=== PATIENT | female | born 1965 | race Two or more races ===

== ENCOUNTER 2021-02-21 08:52 | Day surgery (SDC) | payer MEDICAID ==
[2021-02-16 14:18] LABS: Basophils # (auto) 0 10 ^3/uL (0-0.2); Basophils % (auto) 0.5 % (0.0-2.0); Eosinophils # (auto) 0.1 10 ^3/uL (0-0.8); Eosinophils % (auto) 1.2 % (0.0-7.0); Hemoglobin 12.9 g/dL (12.2-16.2); Lymphocytes # (auto) 2.5 10 ^3/uL (0.4-5.4); Lymphocytes % (auto) 40.8 % (10.0-50.0); Mean Corpuscular Hemoglobin 30.2 pg (28.0-32.0); Mean Corpuscular Hgb Conc. 32.4 g/dL (32.0-36.0); Mean Corpuscular Volume 93.2 fL (80.0-100.0); Monocytes # (auto) 0.5 10 ^3/uL (0-1.3); Monocytes % (auto) 7.6 % (0.0-12.0); Neutrophils # (auto) 3.1 10 ^3/uL (1.6-8.6); Neutrophils % (auto) 49.9 % (37.0-80.0); Red Blood Cells 4.29 10^6/uL (4.0-5.20); Red Cell Distribution Width 13.4 % (11.8-14.3); White Blood Cell 6.1 10^3/uL (4.4-10.8)
[2021-02-16 14:44] LABS: Urine Bacteria NONE SEEN /hpf (None Seen); Urine Blood Negative /uL (Negative); Urine Mucus FEW (None Seen); Urine Specific Gravity 1.026 (1.001-1.035); Urine WBC 1 /hpf (0 - 5)
[2021-02-16 14:58] LABS: Albumin 3.1 g/dL (3.4-5.0); BUN/Creatinine Ratio 15.5; Calcium 8.6 mg/dL (8.5-10.1); Potassium 3.8 mmol/L (3.5-5.1)
[2021-02-16 15:01] LABS: Bilirubin, Total 0.6 mg/dL (0.2-1.0); Total Protein 6.7 g/dL (6.4-8.2)
[~2021-02-21] VITALS: Ht 165.1 cm; Wt 81.6 kg
[~2021-02-21 08:52] MED LIST: ATOR10TA PO; ESTR2TAB2 PO; IBUP800T27 PO; METH100I IJ; PANT40TA2 PO
[2021-02-21] MEDS ORDERED: ceFAZolin 1GM/50ML 100 ML IV ONE (09:38)
[2021-02-21] MEDS ORDERED: LIDOCAINE 1% HCL (LOCAL ANESTH.) INJ 20ML MDV ONE (10:33)
[2021-02-21] MEDS ORDERED: BUPIVACAINE HCL 50 ML ONE (10:33)
[2021-02-21] MEDS ORDERED: fentaNYL CITRATE 100 MCG/2 ML VL ONE (10:40)
[2021-02-21] MEDS ORDERED: ONDANSETRON HCL 4 MG/2 ML VIAL ONE (10:40)
[2021-02-21] MEDS ORDERED: PROPOFOL 10 MG/ML 20 ML IV ONE (10:40)
[2021-02-21] MEDS ORDERED: MIDAZOLAM HCL 2MG/2ML 2ml VIAL (1mg/ml) ONE (10:40)
[2021-02-21] MEDS ORDERED: LIDOCAINE 2% (LOCAL ANESTH.) PF 5ml SDV ONE (10:40)
[2021-02-21] MEDS ORDERED: ONDANSETRON HCL 4 MG/2 ML VIAL IV PRN (11:45)
[2021-02-21] MEDS ORDERED: HYDROmorphone HCL 2 MG/ML VL IV PRN (11:45)
[2021-02-21 12:30] VITALS: BP 112/64
== END 2021-02-21 12:30 | disposition home or self-care (01) ==
LOC: SUR 08:52
PROVIDERS: ATTEND Podiatrist
DX: M72.2 Plantar fascial fibromatosis (principal); M79.89 Other specified soft tissue disorders; M89.372 Hypertrophy of bone, left ankle and foot; M20.42 Other hammer toe(s) (acquired), left foot; G43.909 Migraine, unspecified, not intractable, without status migrainosus; E78.5 Hyperlipidemia, unspecified; Z98.51 Tubal ligation status; Z90.710 Acquired absence of both cervix and uterus; Z98.890 Other specified postprocedural states; Z79.899 Other long term (current) drug therapy; Z20.822 Contact with and (suspected) exposure to COVID-19
CPT/HCPCS: 28062; 36415; 80053; 81001; 85025; 88305; J0690; J2001; J2250; J2405; J2704; J3010; J3490; U0003

== ENCOUNTER → 2021-11-21 | Outpatient (CLI) | payer MEDICAID, OTHER ==
[2021-11-21 14:15] LABS: Bilirubin, Total 0.6 mg/dL (0.2-1.0); Total Protein 7.1 g/dL (6.4-8.2)
[2021-11-21 14:27] LABS: Albumin 3.4 g/dL (3.4-5.0); Bilirubin, Direct 0.2 mg/dL (0-0.2)
== END | disposition home or self-care (01) ==
LOC: LAB 13:28
PROVIDERS: ATTEND Podiatrist
DX: M72.2 Plantar fascial fibromatosis (principal)
CPT/HCPCS: 36415; 80076

== ENCOUNTER 2024-06-15 12:49 | Inpatient (IN) | payer MEDICAID, OTHER ==
[~2024-06-15] VITALS: Ht 165.1 cm; Wt 93.1 kg
[~2024-06-15 12:49] MED LIST changes: -ESTR2TAB2 PO; +ESTR2TAB5 PO; +IBUP-1456 PO; -IBUP800T27 PO; +METH100035 IJ; -METH100I IJ
[2024-06-15] MEDS: SODIUM CHLORIDE 0.9% 1,000 ML IV ONE (14:40)
--- NOTE | 2024-06-15 14:40 | ED.PDOC ---
GI ASSESSMENT HPI Comments 58 y/o F presents to the ED with CC of nausea/vomiting. Patient states, that she has been experiencing nausea/vomiting with associated abdominal pain [id number]. Patient relays, that she followed up with her PCP and was relayed to the ED for a further work up. Patient endorses on, new symptoms of weakness and fatigue. Patient denies social history. Patient denies fever, chills, body-aches, or poor appetite. No other symptoms or modifying factors at this time. Chief Complaint: Nausea/Vomiting Time Seen by MD: 13:25 Primary Care Provider: AMINTA Reviewed Notes: Nurses Notes, Medications, Allergies Allergies: Coded Allergies: NO KNOWN ALLERGIES (Unverified , 02/16/21) Home Meds Reported Medications Ibuprofen (Ibuprofen) 800 Mg Tab, 800 MG PO Q8HP, TAB 02/16/21 Methocarbamol (Robaxin) 1,000 Mg/10 Ml Inj, 1000 MG IJ, INJ 02/16/21 Estradiol (Estradiol) 2 Mg Tab, 2 MG PO, TAB 02/16/21 Pantoprazole Sodium Sesquihydr (Protonix) 40 Mg Tab, 40 MG PO DAILY, #30 TAB 02/16/21 Atorvastatin Calcium (Lipitor) 10 Mg Tab, 10 MG PO, TAB 02/16/21 Information Source: Patient Mode of Arrival: EMS Timing: Days Duration: Since onset Prehospital treatment: None Quality: Cramping Vomitus: Watery Stool: Watery Severity: Moderate Recent: None Recent Hx of: None Pain Location: Diffuse Modifying Factors: Nothing Associated sign and symptoms: Nausea, Vomiting, Diarrhea Past Medical History PAST MEDICAL HISTORY: High Lipids Surgical History: Cholecystectomy, Hysterectomy Surgical History (Other): lumbar shx [employer] History: Unknown Family History Family History: Unknown Social History Smoker: Non-Smoker Alcohol: Denies ETOH Use Drugs: Denies Drug Use Lives In: Home Constitutional: reports: weakness; denies: chills, diaphoresis, fatigue, fever, malaise, sweats, others EENTM: denies: blurred vision, double vision, ear bleeding, ear discharge, ear drainage, ear pain, ear ringing, eye pain, eye redness, hearing loss, mouth pain, mouth swelling, nasal discharge, nose bleeding, nose congestion, nose pain, photophobia, tearing, throat pain, throat swelling, voice changes, others Respiratory: denies: cough, hemoptysis, orthopnea, SOB at rest, shortness of breath, SOB with excertion, stridor, wheezing, others Cardiovascular: denies: chest pain, dizzy spells, diaphoresis, Dyspnea on exertion, edema, irregular heart beat, left arm pain, lightheadedness, palpitations, PND, syncope, others Gastrointestinal: reports: abdominal pain, diarrhea, nausea, vomiting; denies: abdomen distended, blood streaked bowels, constipated, dysphagia, difficulty swallowing, hematemesis, melena, poor appetite, poor fluid intake, rectal bleeding, rectal pain, others Genitourinary: denies: abnormal vagina bleeding, burning, dyspareunia, dysuria, flank pain, frequency, hematuria, incontinence, pain, , vagina disch arge, urgency, others Neurological: denies: dizziness, fainting, headache, left sided numbness, left sided weakness, numbness, paresthesia, pre-existing deficit, right sided numbness, right sided weakness, seizure, speech problems, tingling, tremors, weakness, others Musculoskeletal: denies: back pain, gout, joint pain, joint swelling, muscle pain, muscle stiffness, neck pain, others Integumetry: denies: bruises, change in color, change in hair/nails, dryness, laceration, lesions, lumps, rash, wounds, others Allergic/Immunocompromised: denies: Difficulty Healing, Frequent Infections, Hives, Itching, others Hematologic/Lymphatic: denies: anemia, blood clots, easy bleeding, easy bruising, swollen glands, others Endocrine: denies: excessive hunger, excessive sweating, excessive thirst, excessive urination, flushing, intolerance to cold, intolerance to heat, unexplained weight gain, unexplained weight loss, others Psychiatric: denies: anxiety, bipolar disorder, depression, hopeless, panic disorder, schizophrenia, sleepless, suicidal, others All Other Systems: Reviewed and Negative Physical Exam General Appearance: Moderate Distress HEENT: Normal ENT Inspection, Pharynx Normal, TMs Normal Neck: Full Range of Motion, Non-Tender, Normal, Normal Inspection Respiratory: Chest Non-Tender, Lungs Clear, No Accessory Muscle Use, No Respiratory Distress, Normal Breath Sounds Cardiovascular: No Edema, No JVD, No Murmur, No Gallop, Normal Peripheral Pulses, Regular Rate/Rhythm Breast Exam: Deferred Gastrointestinal: No Organomegaly, Non Tender, No Pulsatile Mass, Normal Bowel Sounds, Soft Genitalia: Deferred Pelvic: Deferred Rectal: Deferred Extremities: No calf tenderness, Normal capillary refill, Normal inspection, Normal range of motion, Non-tender, No pedal edema Musculoskeletal : Apperance: Normal Neurologic: Alert, blow machine tender starch spraying II-XII nml as Tested, No Motor Deficits, Normal Affect, Normal Mood, No Sensory Deficits Cerebellar Function: NOT DONE Reflexes: NOT DONE Skin: Dry, Normal Color, Warm Peripheral Pulses: 3+ Radial (R), 3+ Radial (L) Lymphatic: No Adenopathy Was a procedure done? Was a procedure done?: No GI differential Dx Differential Diagnosis: Constipation, Diverticular disease, Esophagitis, Gastritis/PUD, Gastroenteritis, Inflammatory BD, Pancreatitis, Urolithiasis, Electrolyte Imbalance, Food Poisoning, Bacterial, Viral X-Ray, Labs, Meds, VS Vital Signs Date Time Temp Pulse Resp B/P (MAP) Pulse Ox O2 Delivery O2 Flow Rate FiO2 06/15/24 14:47 74 18 99/57 (71) 92 06/15/24 14:43 74 18 92 Room Air* 0 21 06/15/24 12:57 98.4 70 20 136/77 (96) 94 Lab Test 06/15/24 14:45 Range/Units White Blood Count 10.1 4.4-10.8 10^3/uL Red Blood Count 5.15 4.0-5.20 10^6/uL Hemoglobin 15.5 12.2-16.2 g/dL Hematocrit 46.2 H 36.0-46.0 % Mean Corpuscular Volume 89.8 80.0-100.0 fL Mean Corpuscular Hemoglobin 30.1 28.0-32.0 pg Mean Corpuscular Hemoglobin Concent 33.6 32.0-36.0 g/dL Red Cell Distribution Width 13.4 11.8-14.3 % Platelet Count 272 140-450 10^3/uL Mean Platelet Volume 8.9 6.9-10.8 fL Neutrophils (%) (Auto) 71.2 37.0-80.0 % Lymphocytes (%) (Auto) 23.5 10.0-50.0 % Monocytes (%) (Auto) 4.9 0.0-12.0 % Eosinophils (%) (Auto) 0.2 0.0-7.0 % Basophils (%) (Auto) 0.2 0.0-2.0 % Neutrophils # (Auto) 7.2 1.6-8.6 10 ^3/uL Lymphocytes # (Auto) 2.4 0.4-5.4 10 ^3/uL Monocytes # (Auto) 0.5 0-1.3 10 ^3/uL Eosinophils # (Auto) 0 0-0.8 10 ^3/uL Basophils # (Auto) 0 0-0.2 10 ^3/uL Nucleated Red Blood Cells 0.0 % Sodium Level 142 136-145 mmol/L Potassium Level 3.7 3.5-5.1 mmol/L Chloride Level 106 98-107 mmol/L Carbon Dioxide Level 29 20-31 mmol/L Anion Gap 7 5-15 Blood Urea Nitrogen 19 9-23 mg/dL Creatinine 0.98 0.550-1.02 mg/dL Glomerular Filtration Rate Calc 66 >90 mL/min BUN/Creatinine Ratio 19.4 10.0-20.0 Serum Glucose 123 H 74-106 mg/dL Calcium Level 9.6 8.7-10.4 mg/dL Troponin I High Sensitivity 4 </=34 ng/L Current Medications Medications (Trade) Dose Ordered Sig/Jose C Route Start Time Stop Time Status Last Admin Sodium Chloride 1,000 ml @ 1,000 mls/hr Q1H ONCE IV 06/15/24 14:15 06/15/24 15:14 DC 06/15/24 14:40 [place] [id number] Ph: [phone] DIAGNOSTIC IMAGING Diagnostic Imaging Report : [id number] Signed PATIENT: MADI RUTHERFORD ACCT: [id number] UNIT: [id number] : 1965 LOC: ER ROOM / BED: / AGE / SEX: 58 / F ADM STATUS: REG ER SERVICE [id number] ORDERING PHYSICIAN: PACHECO CHINO MD PROCEDURE(s): ABPL - CT AB PEL WO CON-NO ORAL OR IV REASON: enteritis ORDER NUMBER(s): [id number], ACCESSION NUMBER(s): [id number] CT ABDOMEN AND PELVIS WITHOUT CONTRAST CLINICAL HISTORY: enteritis TECHNIQUE: Multiple contiguous axial images of the abdomen and pelvis without intravenous contrast. The images were reformatted degenerate coronal and sagittal reconstructions. All CT scans at this medical facility are performed using dose modulation techniques as appropriate to a performed exam including the following:Automated exposure control was utilized; adjustment of the MA and/or KV according to patient size; and use of iterative reconstruction technique. Radiation Dose Information: CT Dose: CTDI volume is 18 mGy. Dose-length product is 925 mGy*cm Comparison: None FINDINGS: Evaluation of the abdomen and pelvis is limited without intravenous contrast. The gallbladder is surgically absent. There is a dilated common bile duct which is likely postsurgical. There are left renal cysts measuring up to 3.2 cm. There is no evidence of nephrolithiasis or hydronephrosis. The liver, pancreas, adrenal glands, and spleen appear within normal limits. There is no gross evidence of abdominal lymphadenopathy. There is no free fluid or free air. The stomach grossly appears unremarkable. The small and large bowel loops demonstrate normal caliber. There are diverticula in the sigmoid colon without evidence of acute diverticulitis. There is a normal-appearing appendix seen in the right lower quadrant abdomen. The abdominal aorta and IVC appear within normal limits. The bladder appears unremarkable for the degree of distention. The uterus is surgically absent.. There is no gross evidence of a pelvic mass. There is no free fluid collection. There is a band of scarring versus atelectasis in the right lung base. There is levoconvex curvature of the lumbar spine. There is partial visualization of the left-sided posterior fusion vinny in the visualized thoracic and upper lumbar spine. IMPRESSION: 1. There is no acute process in the abdomen and pelvis. 2. Sigmoid diverticulosis without evidence of acute diverticulitis. 3. Postsurgical changes related to cholecystectomy with dilated common bile duct. 4. Left renal cysts. HS:Y ATED BY: TRENTON MELENDEZ MD DICTATED DATE/TIME: 06/15/241434 SIGNED BY: TRENTON MELENDEZ MD SIGNED DATE/TIME: 06/15/241434 CC: Patient alert. Complaining of abdominal pain nausea vomiting generalized weakness. Unable to ambulate. Vitals stable. Answering all questions. CT scan of the abdomen does not show any acute process. She is unable to ambulate. Possibly will need GI consultation. Establish intravenous access. Was given fluids. Reviewed her previous visit. Explained to the patient. Continue cardiac monitoring. Time of 1ST Reevaluation: 13:55 Reevaluation 1ST: Unchanged Patient Education/Counseling: Diagnosis, Treatment Family Education/Counseling: Diagnosis, Treatment Departure 1 Departure Time of Disposition: 16:17 Impression: Primary Impression: Acute abdominal pain Additional Impressions: Diverticulosis Generalized weakness Disposition: ADMITTED INPATIENT Admit to: Med Surg Condition: Guarded Discharged With: Legal Guardian Critical Care Note Critical Care Time?: No Stability Stability form required: No Heart Score Heart Score: Heart Score Response (Comments) Value History N/A 0 EKG N/A 0 Age N/A 0 Risk Factors N/A 0 Troponin N/A 0 Total 0 I personally scribed for PACHECO CHINO MD ([email or web address]) on 06/15/24 at 14:40. Electronically submitted by Fela Mccoy ([email or web address]). I personally scribed for PACHECO CHINO MD ([email or web address]) on 06/15/24 at 15:14. Electronically submitted by Fela Mccoy ([email or web address]). PACHECO CHINO MD Jun 15, 2024 14:40
[2024-06-15 14:43] VITALS: PULSE 74; RESP 18; O2SAT 92
[2024-06-15 15:12] LABS: Chloride 106 mmol/L (98-107); Potassium 3.7 mmol/L (3.5-5.1); Sodium 142 mmol/L (136-145)
[2024-06-15 15:13] LABS: Anion Gap 7 (5-15); Basophils # (auto) 0 10 ^3/uL (0-0.2); Basophils % (auto) 0.2 % (0.0-2.0); Carbon Dioxide 29 mmol/L (20-31); Eosinophils # (auto) 0 10 ^3/uL (0-0.8); Eosinophils % (auto) 0.2 % (0.0-7.0); Hematocrit 46.2 % (36.0-46.0); Hemoglobin 15.5 g/dL (12.2-16.2); Lymphocytes # (auto) 2.4 10 ^3/uL (0.4-5.4); Lymphocytes % (auto) 23.5 % (10.0-50.0); Mean Corpuscular Hemoglobin 30.1 pg (28.0-32.0); Mean Corpuscular Hgb Conc. 33.6 g/dL (32.0-36.0); Mean Corpuscular Volume 89.8 fL (80.0-100.0); Monocytes # (auto) 0.5 10 ^3/uL (0-1.3); Monocytes % (auto) 4.9 % (0.0-12.0); Neutrophils # (auto) 7.2 10 ^3/uL (1.6-8.6); Neutrophils % (auto) 71.2 % (37.0-80.0); Platelet Count (auto) 272 10^3/uL (140-450); Red Blood Cells 5.15 10^6/uL (4.0-5.20); Red Cell Distribution Width 13.4 % (11.8-14.3); White Blood Cell 10.1 10^3/uL (4.4-10.8)
[2024-06-15 15:14] LABS: Calcium 9.6 mg/dL (8.7-10.4)
[2024-06-15 15:18] LABS: BUN/Creatinine Ratio 19.4 (10.0-20.0); Blood Urea Nitrogen 19 mg/dL (9-23)
[2024-06-15 15:27] LABS: Glucose 123 mg/dL (74-106)
[2024-06-15 16:30] LABS: Urine Bacteria FEW /hpf (None Seen); Urine Blood Negative /uL (Negative); Urine Clarity Turbid (Clear); Urine Color Yellow (Yellow); Urine Mucus FEW (None Seen); Urine Protein, UAD 1+ (Negative); Urine Specific Gravity 1.026 (1.001-1.035); Urine Squamous Epithelial Cell FEW /hpf (<5); Urine Urobilinogen Normal (Negative); Urine WBC 11 /HPF (0-5); Urine pH 5.5 (5.0-9.0)
--- NOTE | 2024-06-15 22:20 | DVHHPRES ---
History of Present Illness Resident Creating Document: CAR HDEZ RESDIENT History of Present Illness This is a 58-year-old female with past medical history of dyslipidemia, GERD came to the hospital due to dizziness since 10 days. Per patient, the patient is feeling like the room is spinning around her, which worsen the head. Patient also reports fever, cough, mild shortness of breaths, nausea, vomiting, diarrhea, and abdominal pain. Patient denies chest pain, dysuria, any recent sick contact or travel history. The patient has history of scoliosis (status po st surgery) and lumbar disc herniation which has the planned surgery 2 months later. PMHx: Scoliosis (status post surgery and bar placement during childhood) dyslipidemia and GERD PSHx: Cholecystectomy, hysterectomy, cystectomy of the kidney, surgery for plantar fasciitis Social history: Patient uses walker, lives alone, denies smoking drink or any other drug use Home medication: Atorvastatin, Pepcid and Protonix Allergic history: No known allergies Review of Systems Review of Systems General: Reports mild headache HEENT: Patient reports dizziness and headaches Cardiovascular: Denies chest pain, palpitations, dyspnea on exertion, orthopnea, or claudication. Respiratory: Reports cough, and shortness of breaths Gastrointestinal: Reports nausea, vomiting, diarrhea Genitourinary: No dysuria, hematuria, discharge, frequency, urgency, nocturia, incontinence, and urinary retention. Endocrine: No heat or cold intolerance, polydipsia, polyuria, and polyphagia. Neurological: No dizziness, extremity weakness and numbness, tremors, gait disturbance, seizures, and memory impairment. Psychiatric: Denies depression, anxiety,or insomnia. Musculoskeletal: Denies neck pain, stiffness and swelling, back pain, muscle weakness, joint pain, stiffness, swelling, or limited range of motion. Skin: No rashes, itching, skin lesion, changes in hair, nail, skin texture and breast. Hematologic/Lymphatic: Denies easy bruising, bleeding tendencies, or lymph node enlargement. Allergies: Coded Allergies: NO KNOWN ALLERGIES (Unverified , 02/16/21) Exam Vital Signs Vital Signs Date Time Temp Pulse Resp B/P (MAP) Pulse Ox O2 Delivery O2 Flow Rate FiO2 06/15/24 19:45 98.3 65 15 102/69 (80) 95 98.3 06/15/24 14:43 Room Air* 0 21 Exam General Appearance: Alert, Oriented X3, Cooperative, No acute distress HEENT: Atraumatic, PERRLA, EOMI, Mucous membrane moist/pink Respiratory: Bilateral crackles Cardiovascular: Regular rate, Normal S1, Normal S2, No murmurs, no chest wall tenderness Abdominal: Normal bowel sounds, Soft, No tenderness, No hepatospenomegaly, No masses Extremities: No clubbing, No cyanosis, No edema, Normal pulses, No tenderness/swelling Skin: No rashes, No breakdown, No significant lesion Neuro: Normal gait, Normal speech, Strength at 5/5 X4 ext, Normal tone, Sensation intact, Cranial nerves 3-12 NL, Reflexes 2+ Psych/Mental Status: Mental status NL, Mood NL Labs/Xrays Labs Test 06/15/24 14:45 06/15/24 14:37 Range/Units White Blood Count 10.1 4.4-10.8 10^3/uL Red Blood Count 5.15 4.0-5.20 10^6/uL Hemoglobin 15.5 12.2-16.2 g/dL Hematocrit 46.2 H 36.0-46.0 % Mean Corpuscular Volume 89.8 80.0-100.0 fL Mean Corpuscular Hemoglobin 30.1 28.0-32.0 pg Mean Corpuscular Hemoglobin Concent 33.6 32.0-36.0 g/dL Red Cell Distribution Width 13.4 11.8-14.3 % Platelet Count 272 140-450 10^3/uL Mean Platelet Volume 8.9 6.9-10.8 fL Neutrophils (%) (Auto) 71.2 37.0-80.0 % Lymphocytes (%) (Auto) 23.5 10.0-50.0 % Monocytes (%) (Auto) 4.9 0.0-12.0 % Eosinophils (%) (Auto) 0.2 0.0-7.0 % Basophils (%) (Auto) 0.2 0.0-2.0 % Neutrophils # (Auto) 7.2 1.6-8.6 10 ^3/uL Lymphocytes # (Auto) 2.4 0.4-5.4 10 ^3/uL Monocytes # (Auto) 0.5 0-1.3 10 ^3/uL Eosinophils # (Auto) 0 0-0.8 10 ^3/uL Basophils # (Auto) 0 0-0.2 10 ^3/uL Nucleated Red Blood Cells 0.0 % Sodium Level 142 136-145 mmol/L Potassium Level 3.7 3.5-5.1 mmol/L Chloride Level 106 98-107 mmol/L Carbon Dioxide Level 29 20-31 mmol/L Anion Gap 7 5-15 Blood Urea Nitrogen 19 9-23 mg/dL Creatinine 0.98 0.550-1.02 mg/dL Glomerular Filtration Rate Calc 66 >90 mL/min BUN/Creatinine Ratio 19.4 10.0-20.0 Serum Glucose 123 H 74-106 mg/dL Calcium Level 9.6 8.7-10.4 mg/dL Troponin I High Sensitivity 4 </=34 ng/L Urine Color Yellow Yellow Urine Clarity Turbid H Clear Urine pH 5.5 5.0-9.0 Urine Specific [place] 1.026 1.001-1.035 Urine Protein 1+ H Negative Urine Ketones 1+ H Negative Urine Blood Negative Negative /uL Urine Nitrite Negative Negative Urine Bilirubin Negative Negative Urine Urobilinogen Normal Negative mg/dL Urine Leukocyte Esterase 1+ Negative /uL Urine RBC 3 0 - 4 /hpf Urine Microscopic WBC 11 H 0-5 /HPF Urine Squamous Epithelial Cells Few <5 /hpf Urine Bacteria Few H None Seen /hpf Urine Mucus Few None Seen Urine Glucose Trace Normal mg/dL Assessment/Plan Assessment/Plan Dizziness possibly due to BPPV Head CT scan is normal Zora maneuver could not perform due to patient's back pain and scoliosis/dyskinesia Tablet meclizine Pneumonia, likely due to Gram-positive Gram-negative bacteria/viral Check MRSA nares, influenza, COVID 19 and sputum culture Empiric antibiotics of ceftriaxone and azithromycin IV antibiotic Breathing treatment p.r.n. UTI, unspecified location slight Urine culture IV antibiotics History of scoliosis, status post surgery/placement of bar Degenerative disc disease/disc herniation, patient has appointment for a planned surgery Dyslipidemia Continue atorvastatin GERD Continue Protonix Sigmoid diverticulosis, without diverticulitis CT scan finding Left renal cysts Patient has history of renal surgery for the cystectomy of the kidney DIET: Cardiac diet DVT PROPHYLAXIS: Lovenox GI PROPHYLAXIS:: Protonix CODE STATUS: Goal of care discussed for more than 23 minutes, full code DISPOSITION: Med/surge Patient's status and paln discussed with the patient and the patient's daughter at the bedside. Case discussed with Dr. Moulton. Plan discussed with: Patient, Other (RN) My Orders Orders - CAR HDEZ RESDIENT Procedure Category Date Status Time Admit ADMIT 06/15/24 Transmitted 22:18 Stat Ekg For Chest BOB 06/15/24 Transmitted Pain 22:18 Notify Md Of Changes BOB 06/15/24 Transmitted From Base 22:18 Date of Service: Jun 15, 2024 Billing Provider: CLARISA ALMARAZ MD Common Visit Codes: [id number] INP/OBS CARE (HIGH) CAR HDEZ RESDIENT Jun 15, 2024 22:20 CLARISA ALMARAZ MD Jun 16, 2024 23:15
[2024-06-15] MEDS ORDERED: MORPHINE SULFATE INJ 2 MG/ml SYRG IV PRN (23:00)
[2024-06-15] MEDS: PANTOPRAZOLE 40 MG/10 ML VIAL INJ IV ONE (23:29)
[2024-06-15] MEDS: ATORVASTATIN 20 MG TAB PO ONE (23:30)
[2024-06-15] MEDS: cefTRIAXone 1GM/50ML D5W 50 ML IV ONE (23:32)
[2024-06-15 23:45] LABS: Amphetamine Screen, Urine Neg (NEGATIVE); Barbiturate Scree,Urine Neg (NEGATIVE); Benzodiazephine Screen, Urine Neg (NEGATIVE); Cannabinoid Screen, Urine Neg (NEGATIVE); Cocaine Screen, Urine Neg (NEGATIVE); Opiate Scree,Urine Neg (NEGATIVE); Phencyclidine Screen, Urine Neg (NEGATIVE)
[2024-06-15] MEDS ORDERED: ONDANSETRON HCL 4 MG/2 ML VIAL IV PRN (23:45)
[2024-06-15 23:53] VITALS: BP 107/53; PULSE 64; RESP 18; TEMP 98.6; O2SAT 94
[2024-06-16] VITALS (15 sets, daily range): BP systolic 92–120; BP diastolic 53–70; PULSE 64–101; RESP 15–19; TEMP 97.7–98.6; O2SAT 90–99
[2024-06-16 00:04] LABS: Albumin 4.3 g/dL (3.2-4.8); Bilirubin, Total 0.9 mg/dL (0.2-1.0); Magnesium 1.9 mg/dL (1.6-2.6); Total Protein 6.7 g/dL (5.7-8.2)
[2024-06-16] MEDS: IPRATROPIUM BROM 0.5 MG/2.5ML INH SOL NEB SCH (00:04)
[2024-06-16 00:05] LABS: Bilirubin, Direct 0.4 mg/dL (<0.3)
[2024-06-16] MEDS: MECLIZINE HCL 25 MG TAB PO ONE (00:05)
[2024-06-16] MEDS: ENOXAPARIN SOD 40 MG/0.4 ML SYRINGE SC ONE (00:08)
[2024-06-16] MEDS: AZITHROMYCIN 500MG/ 250ML 250 ML IV ONE (00:17)
[2024-06-16 00:28] LABS: Folate (Folic Acid) 17.28 ng/mL (>5.38)
--- NOTE | 2024-06-16 01:02 | DVH ---
EXAM: XY CHEST XRAY 1 VIEW CLINICAL HISTORY: Pneumonia TECHNIQUE: Single AP view of the chest WID: COMPARISON: None FINDINGS: Lines and tubes: Single vinny projects over the thoracic spine. Chest: The heart size and pulmonary vasculature is within normal limits. No pleural effusion, pneumothorax, or consolidation. Linear scarring in the right lung base. The osseous structures are grossly intact. Mild right convexity scoliosis of the thoracic spine. IMPRESSION: No acute cardiopulmonary abnormality.
--- NOTE | 2024-06-16 01:29 | DVH ---
CT BRAIN WITHOUT CONTRAST HISTORY: Dizziness TECHNIQUE: Axial scans were obtained from the skull base through the vertex without contrast. [place] l and coronal reformats were generated. One or more of the following radiation dose reduction techniq ues were used for this examination: automated exposure control, adjustment of the mA and/or kV accord ing to patient size, use of iterative reconstruction technique. COMPARISON: None FINDINGS: Streak artifact limits evaluation, predominantly of the skull base and right posterior fossa. As visualized, no definite acute intracranial hemorrhage or evidence of large vessel territorial infa rction is identified at this time. No midline shift. The basilar cisterns are patent. The visualized paranasal sinuses and mastoid air cells are clear. No grossly displaced calvarial abn ormalities identified. IMPRESSION: No definite acute intracranial findings as visualized. If symptoms persist, MRI may be obtained to fu rther evaluate. HS:Y
[2024-06-16 05:06] LABS: COVID19 ANTIGEN SOFIA FIA NEGATIVE (NEGATIVE); Rapid Influenza A Negative (Negative); Rapid Influenza B Negative (Negative)
[2024-06-16] MEDS: ALBUTEROL SULF 2.5 MG/0.5ML(0.5%) NEB SOLN NEB PRN (07:32)
[2024-06-16] MEDS: MECLIZINE HCL 25 MG TAB PO SCH ×2 (09:19→14:00)
[2024-06-16] MEDS: PANTOPRAZOLE 40 MG/10 ML VIAL INJ IV SCH (09:19)
[2024-06-16] MEDS ORDERED: MECLIZINE HCL 25 MG TAB PO PRN (11:45)
[2024-06-16 12:05] LABS: Basophils # (auto) 0 10 ^3/uL (0-0.2); Basophils % (auto) 0.3 % (0.0-2.0); Eosinophils # (auto) 0.1 10 ^3/uL (0-0.8); Eosinophils % (auto) 0.5 % (0.0-7.0); Hematocrit 40.4 % (36.0-46.0); Hemoglobin 13.6 g/dL (12.2-16.2); Lymphocytes # (auto) 2.4 10 ^3/uL (0.4-5.4); Lymphocytes % (auto) 24.4 % (10.0-50.0); Mean Corpuscular Hemoglobin 30.3 pg (28.0-32.0); Mean Corpuscular Hgb Conc. 33.7 g/dL (32.0-36.0); Monocytes # (auto) 0.8 10 ^3/uL (0-1.3); Monocytes % (auto) 8.6 % (0.0-12.0); Neutrophils # (auto) 6.5 10 ^3/uL (1.6-8.6); Neutrophils % (auto) 66.2 % (37.0-80.0); Platelet Count (auto) 229 10^3/uL (140-450); Red Blood Cells 4.49 10^6/uL (4.0-5.20); Red Cell Distribution Width 13.4 % (11.8-14.3); White Blood Cell 9.8 10^3/uL (4.4-10.8)
[2024-06-16 12:18] LABS: Albumin 3.8 g/dL (3.2-4.8); Anion Gap 8 (5-15); BUN/Creatinine Ratio 17.7 (10.0-20.0); Blood Urea Nitrogen 14 mg/dL (9-23); Carbon Dioxide 27 mmol/L (20-31); Chloride 106 mmol/L (98-107); Glucose 101 mg/dL (74-106); Sodium 141 mmol/L (136-145)
[2024-06-16 12:19] LABS: Total Protein 5.8 g/dL (5.7-8.2)
[2024-06-16 12:21] LABS: Alanine Aminotransferase 81 U/L (7-40); Alkaline Phosphatase 179 U/L (46-116); Aspartate Aminotransferase 108 U/L (13-40); Calcium 8.6 mg/dL (8.7-10.4); Potassium 3.3 mmol/L (3.5-5.1)
[2024-06-16] MEDS: SODIUM CHLORIDE 0.9% 1,000 ML IV ONE (14:56)
[2024-06-16] MEDS: ACETAMINOPHEN 325 MG TAB PO PRN (15:31)
[2024-06-16] MEDS: POTASSIUM CHL 20 Meq TABLET PO ONE (15:31)
--- NOTE | 2024-06-16 18:28 | DVHPNRES ---
Progress Note Date Seen: Jun 16, 2024 Resident Creating Document: ANGELIC BOND RESIDENT Medical Necessity Reason Pt with a Central, PICC or Fol: No Subjective Review of Systems This is a 58-year-old female with past medical history of dyslipidemia, GERD came to the hospital due to dizziness since 10 days. Per patient, the patient is feeling like the room is spinning around her, which worsen the head. Patient also reports fever, cough, mild shortness of breaths, nausea, vomiting, diarrhea, and abdominal pain. Patient denies chest pain, dysuria, any recent sick contact or travel history. The patient has history of scoliosis (status post surgery) and lumbar disc herniation which has the planned surgery 2 months later. Patient was seen and examined on the bedside. She is alert oriented X3 and on 2 L oxygen. complain of dizziness, shortness of breath and cough. No other active complaints Constitutional: No: Fever, Chills, Sweats, Weakness, Malaise, Other Eyes: No: Pain, Vision change, Conjunctivae inflammation, Eyelid inflammation, Other, Redness ENT: No: Ear pain, Ear discharge, Nose pain, Nose discharge, Nose congestion, Mouth pain, Mouth swelling, Throat pain, Throat swelling, Other Respiratory: Shortness of breath, improving Cough, No Dry Wheezing, Hemoptysis, Pleuritic Pain, Sputum, Wheezing, Other Cardiovascular: No: Chest Pain, Palpitations, Orthopnea, Paroxysmal Noc. Dyspnea, Edema, Lt Headedness, Other Gastrointestinal: No: Nausea, Vomiting, Abdominal Pain, Diarrhea, Constipation, Melena, Hematochezia, Other Musculoskeletal: No: other, neck pain, shoulder pain, arm pain, back pain, hand pain, leg pain, foot pain Neurological:; Dizziness No: Weakness, Numbness, Incoordination, Change in speech, Confusion, Seizures Objective vital signs Vital Sign Date Time Temp Pulse Resp B/P (MAP) Pulse Ox O2 Delivery O2 Flow Rate FiO2 06/16/24 16:30 98.2 90 17 98/62 (74) 95 98.2 06/16/24 13:07 Nasal Cannula* 2 28 Total Intake and Output 06/15/24 06/15/24 06/16/24 15:00 23:00 07:00 Intake Total 1000 ml 450 ml Balance 1000 ml 450 ml medications Current Medications Medications Dose Ordered Sig/Jose C Route Start Time Stop Time Status Last Admin Dose Admin Ceftriaxone Sodium 50 ml @ 100 mls/hr DAILY@2100 IV 06/16/24 21:00 Pantoprazole Sodium 40 mg DAILY IV 06/16/24 10:00 06/16/24 09:19 40 MG Atorvastatin Calcium 40 mg HS PO 06/16/24 22:00 Ipratropium [place] 0.5 mg Q6HR NEB 06/16/24 00:00 06/16/24 13:07 0.5 MG Albuterol 2.5 mg Q6HPRN PRN NEB 06/15/24 23:00 06/16/24 13:07 2.5 MG Morphine Sulfate 1 mg Q6HP PRN IV 06/15/24 23:00 Azithromycin 250 ml @ 125 mls/hr DAILY IV 06/17/24 10:00 Acetaminophen 650 mg Q4HP PRN PO 06/15/24 23:45 06/16/24 15:31 650 MG Enoxaparin Sodium 40 mg DAILY SC 06/17/24 10:00 Ondansetron HCl 4 mg Q6HPRN PRN IV 06/15/24 23:45 Meclizine HCl 25 mg BID PO 06/16/24 14:00 Examination Physical examination: General Appearance: Alert, Oriented X3, Cooperative, No acute distress HEENT: Atraumatic, PERRLA, EOMI, Mucous membrane moist/pink Respiratory: Bilateral crackles. Cardiovascular: Regular rate, Normal S1, Normal S2, No murmurs, no chest wall tenderness Abdominal: Normal bowel sounds, Soft, No tenderness, No hepatospenomegaly, No masses Extremities: No clubbing, No cyanosis, No edema, Normal pulses, No tenderness/swelling Skin: No rashes, No breakdown, No significant lesion Neuro: Normal gait, Normal speech, Strength at 5/5 X4 ext, Normal tone, Sensation intact, grossly intact cranial nerves Psych/Mental Status: Mental status NL, Mood NL laboratory and microbiology Laboratory Tests 06/16/24 11:41 Test 06/16/24 11:41 Range/Units Serum Glucose 101 74-106 mg/dL Microbiology Date/Time Source Procedure Growth Status 06/16/24 03:05 Nose MRSA Screen - Final Complete Labs and/or images reviewed: Labs reviewed by me, Image(s) reviewed by me Problem List/Assessment/Plan Problem List/Assessment/Plan Assessment/Plan: # Dizziness possibly due to BPPV - Head CT scan is normal - Meclizine 25 mg PO b.i.d - Orthoststic vital sign - Jose Luis-hallpike maneuver # Community acquired pneumonia likely due to Gram-positive Gram-negative bacteria # Rule out CHF # Acute hypoxic respiratory failure secondary to above - Patient is on 2L oxygen with saturation 95% - CXR showed no acute cardiopulmonary abnormality - BNP is elevated - MRSA/Covid/Flu negative - Duoneb with Albuterol and ipratropium q.6 p.r.n. - IV ceftriaxone 1 g daily and IV azithromycin 500 mg daily - Ordered sputum C/S - Incentive spirometry - Ordered echo # Possible acute cystitis - U/A is consistent with UTI - Ordered urine bacterial culture - IV ceftriaxone1 gm daily # History of scoliosis, status post surgery/placement of bar #Degenerative disc disease/disc herniation, patient has appointment for a planned surgery # Dyslipidemia - Continue atorvastatin # GERD - Continue Protonix # Left renal cysts Patient has history of renal surgery for the cystectomy of the kidney DIET: Cardiac diet DVT PROPHYLAXIS: Lovenox GI PROPHYLAXIS:: Protonix CODE STATUS: Goal of care discussed for more than 23 minutes, full code DISPOSITION: Med/surge Case discussed with Dr. Moulton Plan discussed with: Patient, Other My Orders My Orders Orders - ANGELIC BOND RESIDENT Procedure Category Date Status Time Electrocardigram EKG 06/16/24 Logged 11:38 Meclizine Tablet PHA 06/16/24 In Process (Antivert Tablet) 14:00 Sodium Chloride 0.9% PHA 06/16/24 In Process 14:00 ANGELIC BOND RESIDENT Jun 16, 2024 18:28
[2024-06-16] MEDS: cefTRIAXone 1GM/50ML D5W 50 ML IV SCH (20:35)
[2024-06-16] MEDS: ATORVASTATIN 20 MG TAB PO SCH (21:35)
[2024-06-17] VITALS (14 sets, daily range): BP systolic 84–123; BP diastolic 51–68; PULSE 67–85; RESP 14–18; TEMP 97.6–98.6; O2SAT 92–100
[2024-06-17 06:04] LABS: Basophils # (auto) 0 10 ^3/uL (0-0.2); Basophils % (auto) 0.2 % (0.0-2.0); Eosinophils # (auto) 0 10 ^3/uL (0-0.8); Eosinophils % (auto) 0.5 % (0.0-7.0); Hematocrit 36.5 % (36.0-46.0); Hemoglobin 12.3 g/dL (12.2-16.2); Lymphocytes # (auto) 2.1 10 ^3/uL (0.4-5.4); Lymphocytes % (auto) 23.6 % (10.0-50.0); Mean Corpuscular Hemoglobin 30.4 pg (28.0-32.0); Mean Corpuscular Hgb Conc. 33.7 g/dL (32.0-36.0); Mean Corpuscular Volume 90.1 fL (80.0-100.0); Monocytes # (auto) 0.7 10 ^3/uL (0-1.3); Monocytes % (auto) 8.6 % (0.0-12.0); Neutrophils # (auto) 5.9 10 ^3/uL (1.6-8.6); Neutrophils % (auto) 67.1 % (37.0-80.0); Nucleated Red Blood Cells % 0.1 %; Platelet Count (auto) 234 10^3/uL (140-450); Red Blood Cells 4.05 10^6/uL (4.0-5.20); Red Cell Distribution Width 13.3 % (11.8-14.3); White Blood Cell 8.8 10^3/uL (4.4-10.8)
[2024-06-17 06:11] LABS: Potassium 3.7 mmol/L (3.5-5.1); Sodium 142 mmol/L (136-145)
[2024-06-17 06:12] LABS: Anion Gap 7 (5-15); Carbon Dioxide 26 mmol/L (20-31)
[2024-06-17 06:17] LABS: BUN/Creatinine Ratio 12.8 (10.0-20.0); Blood Urea Nitrogen 10 mg/dL (9-23); Calcium 8.6 mg/dL (8.7-10.4); Chloride 109 mmol/L (98-107); Glucose 90 mg/dL (74-106)
[2024-06-17 07:06] LABS: RPR Non Reactive (Non Reactive)
--- NOTE | 2024-06-17 08:02 | ECG ---
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
[2024-06-17] MEDS ORDERED: AZITHROMYCIN 500MG/ 250ML 250 ML IV SCH (10:00)
[2024-06-17] MEDS: ENOXAPARIN SOD 40 MG/0.4 ML SYRINGE SC SCH (10:23)
[2024-06-17] MEDS: SODIUM CHLORIDE 0.9% 500 ML IV ONE (10:27)
--- NOTE | 2024-06-17 10:49 | DVHSR ---
APPROVED REPORT EXAM: Two-dimensional and M-mode echocardiogram with Doppler and color Doppler. Blood Pressure: 84/52 mmHg INDICATION Rule out CHF RISK FACTORS Height: 65, Weight: 190 DIMENSIONS LVDd4.5 (3.8-5.7cm)LA (2D)3.7 (1.9-4.0cm)Aortic Root3.3 (2.0-3.7cm) LVDs2.7 (2.5-4.0cm)LA (MM) (1.9-4.0cm)Aortic Cusp Exc1.7 (1.5-2.0cm) EF (%) 70.0 (55-70%)Rt. Atrium4.2 (1.9-4.0cm)Asc. Aorta cm IVSd1.1 (0.7-1.1cm)RV (D) (1.8-2.4cm) PWd0.7 (0.7-1.1cm) Mitral Valve MitralMitral Stenosis E wave0.97m/sMV Mean GR.mmHg A wave0.44m/sMV Peak GR.mmHg E/A ratio2.22D MVAcm2 DECEL [id number] 1/2 [id number] IVRTmsDop MVA3.96cm2 Aortic Valve Aortic ValveAortic Stenosis V11.33m/Jonna Mean GR.4mmHg V21.41m/Jonna Peak GR.8mmHg LVOT Diameter1.9 (1.8-2.4cm)Doppler AVA2.67cm2 Pulmonic Valve V21.06m/s Tricuspid Valve TR Velocity2.77m/s [id number] LEFT VENTRICLE The left ventricle is of normal size. Wall thickness is normal. Ejection fraction is normal and is estimated at 65-70%. There is no gross wall motion abnormalities. Diastolic function appears to be preserved. E to E prime ratio is in the normal range. RIGHT VENTRICLE The right ventricle is mildly dilated in size. Systolic function is normal. ATRIA Both atria are of normal size. Intra-atrial septum is not well visualized. MITRAL VALVE Normal structure and function. No significant regurgitation. PULMONIC VALVE Likely normal. TRICUSPID VALVE Normal in structure and function. There is mild regurgitation. PA systolic pressure is estimated at 35-40 mm Hg. AORTIC VALVE Normal structure and function. GREAT VESSELS Aortic root is of normal size. Proximal ascending aorta isn't visualized. PERICARDIAL EFFUSION No significant pericardial effusion. IVC is not visualized. Conclusion Normal left ventricular size and systolic function. Ejection fraction is estimated at 65-70%. Mildly dilated right ventricle with a normal systolic function. No hemodynamically significant valvular disease. PA systolic pressure is estimated at 35-40 mm Hg. No significant pericardial effusion. No prior echo for comparison.
[2024-06-17] MEDS: MIDODRINE HCL 10 MG TAB PO SCH (13:16)
[2024-06-17] MEDS: DOXYCYCLINE 100MG/100ML 100 ML IV SCH (13:37)
[2024-06-17] MEDS: CEFEPIME 1GM/ 50ML 50 ML IV ONE (15:43)
[2024-06-17] MEDS: SODIUM CHLORIDE 0.9% 1,000 ML IV SCH (18:57)
--- NOTE | 2024-06-17 19:10 | DVHPNRES ---
Progress Note Date Seen: Jun 17, 2024 Resident Creating Document: ANGELIC BOND RESIDENT Medical Necessity Reason Pt with a Central, PICC or Fol: No Subjective Review of Systems This is a 58-year-old female with past medical history of dyslipidemia, GERD came to the hospital due to dizziness since 10 days. Per patient, the patient is feeling like the room is spinning around her, which worsen the head. Patient also reports fever, cough, mild shortness of breaths, nausea, vomiting, diarrhea, and abdominal pain. Patient denies chest pain, dysuria, any recent sick contact or travel history. The patient has history of scoliosis (status post surgery) and lumbar disc herniation which has the planned surgery 2 months later. Patient was seen and examined on the bedside. She is alert oriented X3 and on 1 L oxygen. Still complaining of dizziness, orthostatic vital negative, Zora's maneuver was also negative. patient refused MRI of the brain without contrast because she is claustrophobic. Patient is hypotensive but MAP is above 65 recommended IV normal saline at 100 mL/hours and midodrine 10 mg PO TID. Objective vital signs Vital Sign Date Time Temp Pulse Resp B/P (MAP) Pulse Ox O2 Delivery O2 Flow Rate FiO2 06/17/24 18:58 84 16 100 06/17/24 18:52 Nasal Cannula 2.0 06/17/24 18:52 24 06/17/24 17:01 98.3 104/51 (68) 98.3 Total Intake and Output 06/16/24 06/16/24 06/17/24 15:00 23:00 07:00 Intake Total 1200 ml 420 ml Output Total 0 ml 825 ml Balance 1200 ml -405 ml medications Current Medications Medications Dose Ordered Sig/Jose C Route Start Time Stop Time Status Last Admin Dose Admin Pantoprazole Sodium 40 mg DAILY IV 06/16/24 10:00 06/17/24 10:23 40 MG Atorvastatin Calcium 40 mg HS PO 06/16/24 22:00 06/16/24 21:35 40 MG Ipratropium [place] 0.5 mg Q6HR NEB 06/16/24 00:00 06/17/24 18:52 0.5 MG Albuterol 2.5 mg Q6HPRN PRN NEB 06/15/24 23:00 06/16/24 18:55 2.5 MG Morphine Sulfate 1 mg Q6HP PRN IV 06/15/24 23:00 Acetaminophen 650 mg Q4HP PRN PO 06/15/24 23:45 06/16/24 15:31 650 MG Enoxaparin Sodium 40 mg DAILY SC 06/17/24 10:00 06/17/24 10:23 40 MG Ondansetron HCl 4 mg Q6HPRN PRN IV 06/15/24 23:45 Meclizine HCl 25 mg BID PO 06/16/24 14:00 06/17/24 10:23 25 MG Cefepime HCl 50 ml @ 12.5 mls/hr Q12HR IV 06/17/24 22:00 Doxycycline Hyclate 100 ml @ 50 mls/hr Q12H IV 06/17/24 11:00 06/17/24 13:37 50 MLS/HR Sodium Chloride 1,000 ml @ 100 mls/hr Q10H IV 06/17/24 11:15 06/17/24 18:57 100 MLS/HR Midodrine 10 mg TID@0600,1200,1800 PO 06/17/24 12:00 06/17/24 18:56 10 MG Examination Physical examination: General Appearance: Alert, Oriented X3, Cooperative, No acute distress HEENT: Atraumatic, PERRLA, EOMI, Mucous membrane moist/pink Respiratory: Bilateral crackles. Cardiovascular: Regular rate, Normal S1, Normal S2, No murmurs, no chest wall tenderness Abdominal: Normal bowel sounds, Soft, No tenderness, No hepatospenomegaly, No masses Extremities: No clubbing, No cyanosis, No edema, Normal pulses, No tenderness/swelling Skin: No rashes, No breakdown, No significant lesion Neuro: Normal gait, Normal speech, Strength at 5/5 X4 ext, Normal tone, Sensation intact, grossly intact cranial nerves Psych/Mental Status: Mental status NL, Mood NL laboratory and microbiology Laboratory Tests 06/17/24 05:04 Test 06/17/24 05:04 Range/Units Serum Glucose 90 74-106 mg/dL Microbiology Date/Time Source Procedure Growth Status 06/17/24 03:35 Stool Stool Culture - Preliminary Resulted 06/17/24 03:35 Stool Shiga Toxin I & II - Final Resulted 06/16/24 03:05 Nose MRSA Screen - Final Complete 06/15/24 14:37 Voided Urine Urine Culture - Preliminary Resulted Labs and/or images reviewed: Labs reviewed by me, Image(s) reviewed by me Problem List/Assessment/Plan Problem List/Assessment/Plan Assessment/Plan: # Dizziness possibly due to BPPV/ Hypotension - Head CT scan is normal - Meclizine 25 mg PO b.i.d - Orthoststic vital sign negative - Jose Luis-hallpike maneuver/ Zora manuever- Negative - IV normal saline at 100 mL/hour - [id number] mg PO TID # Community acquired pneumonia likely due to Gram-positive Gram-negative bacteria # Rule out CHF # Acute hypoxic respiratory failure secondary to above - Patient is on 2L oxygen with saturation 95% - CXR showed no acute cardiopulmonary abnormality - BNP is elevated - MRSA/Covid/Flu negative - Duoneb with Albuterol and ipratropium q.6 p.r.n. - IV ceftriaxone 1 g daily and IV azithromycin 500 mg daily - Ordered sputum C/S - Incentive spirometry - Echo revealed EF 65 to 70%, RVSP 35 to 40 mm of hg. # Possible acute cystitis - U/A is consistent with UTI - Ordered urine bacterial culture - IV ceftriaxone1 gm daily # History of scoliosis, status post surgery/placement of bar #Degenerative disc disease/disc herniation, patient has appointment for a planned surgery # Dyslipidemia - Continue atorvastatin # GERD - Continue Protonix # Left renal cysts Patient has history of renal surgery for the cystectomy of the kidney DIET: Cardiac diet DVT PROPHYLAXIS: Lovenox GI PROPHYLAXIS:: Protonix CODE STATUS: Goal of care discussed for more than 23 minutes, full code DISPOSITION: Med/surge Case discussed with Dr. Moulton Plan discussed with: Patient, Other My Orders My Orders Orders - ANGELIC BOND RESIDENT Procedure Category Date Status Time Cefepime 1gm/ 50ml PHA 06/17/24 In Process (Maxipime 1gm/50ml) 22:00 Doxycycline PHA 06/17/24 In Process 100mg/100ml 11:00 Sodium Chloride 0.9% PHA 06/17/24 In Process 11:15 Midodrine Tablet PHA 06/17/24 In Process (Proamatine Tablet) 12:00 Transfer Orders XFER 06/17/24 Transmitted 11:06 ANGELIC BOND RESIDENT Jun 17, 2024 19:10
[2024-06-17] MEDS: CEFEPIME 1GM/ 50ML 50 ML IV SCH (21:06)
[2024-06-18] VITALS (14 sets, daily range): BP systolic 99–119; BP diastolic 50–71; PULSE 50–125; RESP 14–18; TEMP 97.2–98.5; O2SAT 92–99
[2024-06-18 07:00] LABS: Basophils # (auto) 0 10 ^3/uL (0-0.2); Basophils % (auto) 0.4 % (0.0-2.0); Eosinophils # (auto) 0.1 10 ^3/uL (0-0.8); Eosinophils % (auto) 1.2 % (0.0-7.0); Hematocrit 34.6 % (36.0-46.0); Hemoglobin 11.6 g/dL (12.2-16.2); Lymphocytes # (auto) 2.1 10 ^3/uL (0.4-5.4); Lymphocytes % (auto) 26.2 % (10.0-50.0); Mean Corpuscular Hemoglobin 30.1 pg (28.0-32.0); Mean Corpuscular Hgb Conc. 33.6 g/dL (32.0-36.0); Mean Corpuscular Volume 89.7 fL (80.0-100.0); Monocytes # (auto) 0.7 10 ^3/uL (0-1.3); Monocytes % (auto) 9.2 % (0.0-12.0); Nucleated Red Blood Cells % 0.1 %; Platelet Count (auto) 255 10^3/uL (140-450); Red Blood Cells 3.86 10^6/uL (4.0-5.20); Red Cell Distribution Width 13.5 % (11.8-14.3)
[2024-06-18 07:11] LABS: Albumin 3.4 g/dL (3.2-4.8); Anion Gap 8 (5-15); BUN/Creatinine Ratio 8.3 (10.0-20.0); Carbon Dioxide 26 mmol/L (20-31); Glucose 87 mg/dL (74-106); Sodium 142 mmol/L (136-145)
[2024-06-18 07:26] LABS: Alanine Aminotransferase 48 U/L (7-40); Alkaline Phosphatase 151 U/L (46-116); Aspartate Aminotransferase 45 U/L (13-40); Blood Urea Nitrogen 6 mg/dL (9-23); Calcium 8.6 mg/dL (8.7-10.4); Chloride 108 mmol/L (98-107); Potassium 3.5 mmol/L (3.5-5.1); Total Protein 5.5 g/dL (5.7-8.2)
--- NOTE | 2024-06-18 15:50 | DVHINCON2 ---
Date Seen: Jun 18, 2024 Referring Physician MD Abiodun resident Reason for Consultation Newly diagnosed atrial fibrillation History of Present Illness This is a 58-year-old female patient who presents to the emergency room with chief complaint dizziness and flu-like symptoms. The patient reports she has been feeling dizzy for approximately 10 days. She also reports recent flu-like symptoms such as nausea, fever, and diarrhea. She denies any cardiac symptoms such as chest pain or shortness of breath. She came to the emergency room for further evaluation. Cardiology has been consulted at this time for new onset atrial fibrillation with rapid ventricular response. Initial twelve lead electrocardiogram reveals atrial fibrillation. After reviewing cafeteria monitor, the patient is noted to go into episodes atrial fibrillation with rapid ventricular response with heart rate reaching 130-150's, but nonsustained. Patient also noted to have episodes of sinus bradycardia. Significant past medical history includes dyslipidemia, multiple back surgeries, GERD, and obesity. The patient denies any previous cardiac history. Past Medical History Past medical history reviewed. No other significant than mentioned above. Past Surgical History Corrective surgery for scoliosis Cholecystectomy Hysterectomy Plantar fasciitis surgery Family History: Chronic obstructive pulmonary disease G8 FATHER FH: cancer G8 MOTHER Family History Family history reviewed. Social History Denies the use of tobacco, alcohol or illicit drugs. Allergies: Coded Allergies: NO KNOWN ALLERGIES (Unverified , 02/16/21) Home Meds Reported Medications Ibuprofen (Ibuprofen) 800 Mg Tab, 800 MG PO Q8HP, TAB 02/16/21 Methocarbamol (Robaxin) 1,000 Mg/10 Ml Inj, 1000 MG IJ, INJ 02/16/21 Estradiol (Estradiol) 2 Mg Tab, 2 MG PO, TAB 02/16/21 Pantoprazole Sodium Sesquihydr (Protonix) 40 Mg Tab, 40 MG PO DAILY, #30 TAB 02/16/21 Atorvastatin Calcium (Lipitor) 10 Mg Tab, 10 MG PO, TAB 02/16/21 Home Meds Home medications reviewed. Current Medications Current Medications Medications (Trade) Dose Ordered Sig/Jose C Route PRN Reason Start Time Stop Time Status Last Admin Cefepime HCl 50 ml @ 12.5 mls/hr Q12HR IV 06/17/24 22:00 06/18/24 09:33 Review of Systems Constitutional: Generalized weakness, fever Ears, Nose, & Throat: No symptom reported Eyes: No symptom reported Neurological: Dizziness Pulmonary/Respiratory: No symptoms reported Cardiovascular: No symptom reported Gastrointestinal: Nausea Genitourinary: No symptom reported Musculoskeletal: No symptom reported Skin: No symptom reported Psychiatric: No symptom reported Endocrine: No symptom reported Hematologic/Lymphatic: No symptom reported Vital Signs Vital Signs Date Time Temp Pulse Resp B/P (MAP) Pulse Ox O2 Delivery O2 Flow Rate FiO2 06/18/24 13:42 60 16 96 06/18/24 13:37 Nasal Cannula 1.0 06/18/24 13:37 24 06/18/24 13:00 97.7 119/59 (79) 97.7 Physical Exam General Appearance: Cooperative. Well-developed. Well-nourished. No acute distress. Pulmonary/Respiratory: Clear, bilateral breaths sounds. Cardiovascular/Chest: Regular rate and rhythm. Peripheral Pulses: 2+ Radial (R). 2+ Radial (L). 2+ Pedal (R). 2+ Pedal (L) Abdominal Exam: Normal bowel sounds. Ankle Exam: Negative ankle edema Lower extremities: Negative lower extremity edema Neuro/Mental Status: A/OX4, coherent. Thoughts/Psych: Normal thought pattern. Appropriate mood and affect. Good judgment and insight. Appearance: No acute distress. Skin Exam: Normal inspection. Normal color. Warm and dry. Labs/Diagnostic Data Labs Test 06/18/24 06:05 06/17/24 03:35 06/16/24 11:41 06/16/24 03:05 Range/Units White Blood Count 8.0 4.4-10.8 10^3/uL Red Blood Count 3.86 L 4.0-5.20 10^6/uL Hemoglobin 11.6 L 12.2-16.2 g/dL Hematocrit 34.6 L 36.0-46.0 % Mean Corpuscular Volume 89.7 80.0-100.0 fL Mean Corpuscular Hemoglobin 30.1 28.0-32.0 pg Mean Corpuscular Hemoglobin Concent 33.6 32.0-36.0 g/dL Red Cell Distribution Width 13.5 11.8-14.3 % Platelet Count 255 140-450 10^3/uL Mean Platelet Volume 8.6 6.9-10.8 fL Neutrophils (%) (Auto) 63.0 37.0-80.0 % Lymphocytes (%) (Auto) 26.2 10.0-50.0 % Monocytes (%) (Auto) 9.2 0.0-12.0 % Eosinophils (%) (Auto) 1.2 0.0-7.0 % Basophils (%) (Auto) 0.4 0.0-2.0 % Neutrophils # (Auto) 5.0 1.6-8.6 10 ^3/uL Lymphocytes # (Auto) 2.1 0.4-5.4 10 ^3/uL Monocytes # (Auto) 0.7 0-1.3 10 ^3/uL Eosinophils # (Auto) 0.1 0-0.8 10 ^3/uL Basophils # (Auto) 0 0-0.2 10 ^3/uL Nucleated Red Blood Cells 0.1 % Sodium Level 142 136-145 mmol/L Potassium Level 3.5 3.5-5.1 mmol/L Chloride Level 108 H 98-107 mmol/L Carbon Dioxide Level 26 20-31 mmol/L Anion Gap 8 5-15 Blood Urea Nitrogen 6 L 9-23 mg/dL Creatinine 0.72 0.550-1.02 mg/dL Glomerular Filtration Rate Calc 96 >90 mL/min BUN/Creatinine Ratio 8.3 L 10.0-20.0 Serum Glucose 87 74-106 mg/dL Calcium Level 8.6 L 8.7-10.4 mg/dL Total Bilirubin 1.0 0.2-1.0 mg/dL Aspartate Amino Transferase (AST) 45 H 13-40 U/L Alanine Aminotransferase (ALT) 48 H 7-40 U/L Alkaline Phosphatase 151 H 46-116 U/L Total Protein 5.5 L 5.7-8.2 g/dL Albumin 3.4 3.2-4.8 g/dL Stool for White Cells None seen B-Type Natriuretic Peptide 254.82 0-100 pg/mL Influenza Type A Antigen Negative Negative Influenza Type B Antigen Negative Negative SARS-CoV-2 Antigen (Rapid) Negative NEGATIVE Test 06/16/24 00:16 06/15/24 23:35 06/15/24 23:33 06/15/24 14:45 Range/Units Lactic Acid Level 1.3 0.4-2.0 mmol/L Magnesium Level 1.9 1.6-2.6 mg/dL Direct Bilirubin 0.4 H <0.3 mg/dL Vitamin B12 Level 1402 H 211-911 pg/mL Vitamin D 25-Hydroxy 46.3 30.0-100 ng/mL Folic Acid 17.28 >5.38 ng/mL Thyroid Stimulating Hormone (TSH) 0.61 0.55-4.78 uIU/mL Rapid Plasma Reagin Non reactive Non Reactive Ammonia < 10 L 11-32 umol/L Troponin I High Sensitivity 4 </=34 ng/L Test 06/15/24 14:37 Range/Units Urine Color Yellow Yellow Urine Clarity Turbid H Clear Urine pH 5.5 5.0-9.0 Urine Specific [place] 1.026 1.001-1.035 Urine Protein 1+ H Negative Urine Ketones 1+ H Negative Urine Blood Negative Negative /uL Urine Nitrite Negative Negative Urine Bilirubin Negative Negative Urine Urobilinogen Normal Negative mg/dL Urine Leukocyte Esterase 1+ Negative /uL Urine RBC 3 0 - 4 /hpf Urine Microscopic WBC 11 H 0-5 /HPF Urine Squamous Epithelial Cells Few <5 /hpf Urine Bacteria Few H None Seen /hpf Urine Mucus Few None Seen Urine Glucose Trace Normal mg/dL Urine Opiates Screen Neg NEGATIVE Urine Fentanyl Screen Neg NEGATIVE Urine Barbiturates Screen Neg NEGATIVE Urine Phencyclidine Screen Neg NEGATIVE Urine Amphetamines Screen Neg NEGATIVE Urine Benzodiazepines Screen Neg NEGATIVE Urine Cocaine Screen Neg NEGATIVE Urine Cannabinoids Screen Neg NEGATIVE Microbiology Date/Time Source Procedure Growth Status 06/17/24 03:35 Stool Stool Culture - Preliminary Resulted 06/17/24 03:35 Stool Shiga Toxin I & II - Final Resulted 06/16/24 03:05 Nose MRSA Screen - Final Complete 06/15/24 14:37 Voided Urine Urine Culture - Final Complete Assessment Paroxysmal atrial fibrillation, Stage 3A, newly diagnosed Pneumonia Dyslipidemia Transaminitis, improving GERD Obesity Plan/Recommendation We will continue with the following plan/recommendations (Dr. Wolf): * Transthoracic echocardiogram reveals EF 65-70%, RVSP 35-40 mmHg * ATR0IC2 VASc score: 1 point, HAS-BLED: 0 points * Initiate NOAC therapy, Eliquis * Initiate antiarrhythmic agent, amiodarone. (Monitor AST/ALT) * Hold beta-katerina given bradycardia * Stop midodrine; risk for bradycardia * Cardiac surveillance * Monitor and replete electrolytes as needed, keep potassium greater than 4, and magnesium greater than 2 Patient seen and examined at bedside with . Thank you for allowing us to care for this patient. Please call with any questions or concerns. Critical care time spent: 40 minutes This medical document was created using an electronic medical record system with voice recognition software and computerized dictation system. Although this document has been carefully reviewed, there might still be some phonetic and typographical errors. Occasional wrong-word or ``sound-alike substitutions may have occurred due to the inherent limitations of voice recognition software. These areas are purely typographical due to imperfections of the software programs and do not reflect any compromise in the patient's medical care. Please read the chart carefully and recognize, using context, where these substitutions have occurred. Plan discussed with: Patient NYHA Physical activity limitations: NA Date of Service: Jun 18, 2024 Billing Provider: JORDYN ARROYO Cardiology Common Codes: 61417-OPAIWVW INP/OBS CARE (High) Cardiology Consultation Codes: 16698-[id number] CONSULT <45MIN JORDYN ARROYO Jun 18, 2024 15:50
--- NOTE | 2024-06-18 17:21 | DVHPNRES ---
Progress Note Date Seen: Jun 18, 2024 Resident Creating Document: ANGELIC BOND RESIDENT Medical Necessity Reason Pt with a Central, PICC or Fol: No Subjective Review of Systems This is a 58-year-old female with past medical history of dyslipidemia, GERD came to the hospital due to dizziness since 10 days. Per patient, the patient is feeling like the room is spinning around her, which worsen the head. Patient also reports fever, cough, mild shortness of breaths, nausea, vomiting, diarrhea, and abdominal pain. Patient denies chest pain, dysuria, any recent sick contact or travel history. The patient has history of scoliosis (status post surgery) and lumbar disc herniation which has the planned surgery 2 months later. Patient was seen and examined in the the bedside. She alert oriented x3. patient mentioned improvement of dizziness and also blood pressure and consulted cardiology to rule out tachybrady arrhythmia /sick sinus syndrome. Objective vital signs Vital Sign Date Time Temp Pulse Resp B/P (MAP) Pulse Ox O2 Delivery O2 Flow Rate FiO2 06/18/24 13:42 60 16 96 06/18/24 13:37 Nasal Cannula 1.0 06/18/24 13:37 24 06/18/24 13:00 97.7 119/59 (79) 97.7 Total Intake and Output 06/17/24 06/17/24 06/18/24 15:00 23:00 07:00 Intake Total 50 ml 612.5 ml 650 ml Balance 50 ml 612.5 ml 650 ml medications Current Medications Medications Dose Ordered Sig/Jose C Route Start Time Stop Time Status Last Admin Dose Admin Pantoprazole Sodium 40 mg DAILY IV 06/16/24 10:00 06/18/24 09:33 40 MG Atorvastatin Calcium 40 mg HS PO 06/16/24 22:00 06/17/24 21:06 40 MG Ipratropium Phelps 0.5 mg Q6HR NEB 06/16/24 00:00 06/18/24 13:37 0.5 MG Albuterol 2.5 mg Q6HPRN PRN NEB 06/15/24 23:00 06/18/24 13:37 2.5 MG Morphine Sulfate 1 mg Q6HP PRN IV 06/15/24 23:00 Acetaminophen 650 mg Q4HP PRN PO 06/15/24 23:45 06/16/24 15:31 650 MG Enoxaparin Sodium 40 mg DAILY SC 06/17/24 10:00 06/18/24 09:33 40 MG Ondansetron HCl 4 mg Q6HPRN PRN IV 06/15/24 23:45 Meclizine HCl 25 mg BID PO 06/16/24 14:00 06/18/24 09:33 25 MG Cefepime HCl 50 ml @ 12.5 mls/hr Q12HR IV 06/17/24 22:00 06/18/24 09:33 12.5 MLS/HR Doxycycline Hyclate 100 ml @ 50 mls/hr Q12H IV 06/17/24 11:00 06/18/24 11:54 50 MLS/HR Sodium Chloride 1,000 ml @ 100 mls/hr Q10H IV 06/17/24 11:15 06/17/24 18:57 100 MLS/HR Midodrine 10 mg TID@0600,1200,1800 PO 06/17/24 12:00 06/18/24 11:54 10 MG Examination Physical examination: General Appearance: Alert, Oriented X3, Cooperative, No acute distress HEENT: Atraumatic, PERRLA, EOMI, Mucous membrane moist/pink Respiratory: Mild bilateral basal crackles. Cardiovascular: Regular rate, Normal S1, Normal S2, No murmurs, no chest wall tenderness Abdominal: Normal bowel sounds, Soft, No tenderness, No hepatospenomegaly, No masses Extremities: No clubbing, No cyanosis, No edema, Normal pulses, No tenderness/swelling Skin: No rashes, No breakdown, No significant lesion Neuro: Normal gait, Normal speech, Strength at 5/5 X4 ext, Normal tone, Sensation intact, grossly intact cranial nerves Psych/Mental Status: Mental status NL, Mood NL laboratory and microbiology Laboratory Tests 06/18/24 06:05 Test 06/18/24 06:05 Range/Units Serum Glucose 87 74-106 mg/dL Microbiology Date/Time Source Procedure Growth Status 06/17/24 03:35 Stool Stool Culture - Preliminary Resulted 06/17/24 03:35 Stool Shiga Toxin I & II - Final Resulted 06/16/24 03:05 Nose MRSA Screen - Final Complete 06/15/24 14:37 Voided Urine Urine Culture - Final Complete Labs and/or images reviewed: Labs reviewed by me, Image(s) reviewed by me Problem List/Assessment/Plan Problem List/Assessment/Plan Assessment/Plan: # Dizziness possibly due to BPPV/ Hypotension - Head CT scan is normal - Meclizine 25 mg PO b.i.d - Orthoststic vital sign negative - Jose Luis-hallpike maneuver/ Zora manuever- Negative - IV normal saline at 100 mL/hour - [id number] mg PO TID # Newly diagnosed atrial fibrillation with controlled rate - [id number] score 1 - Consulted cardiology to rule out tachy-lolly arrhythmia/sick sinus syndrome # Community acquired pneumonia likely due to Gram-positive Gram-negative bacteria # Ruled out CHF # Acute hypoxic respiratory failure secondary to above - Patient is on 2L oxygen with saturation 95% - CXR showed no acute cardiopulmonary abnormality - BNP is elevated 254.82 - EKG revealed sinus rhythm and troponins are unremarkable. - Echo on 06/17/24 revealed normal EF 65 to 70%, RVSP 35 to 40 mm of hg. - MRSA/Covid/Flu negative - Duoneb with Albuterol and ipratropium q.6 p.r.n. - IV ceftriaxone 1 g daily and IV azithromycin 500 mg daily - Ordered sputum C/S - Incentive spirometry # Possible acute cystitis - U/A is consistent with UTI - Ordered urine bacterial culture - IV ceftriaxone1 gm daily # History of scoliosis, status post surgery/placement of bar #Degenerative disc disease/disc herniation, patient has appointment for a planned surgery # Dyslipidemia - Continue atorvastatin # GERD - Continue Protonix # Left renal cysts Patient has history of renal surgery for the cystectomy of the kidney DIET: Cardiac diet DVT PROPHYLAXIS: Lovenox GI PROPHYLAXIS:: Protonix CODE STATUS: Goal of care discussed for more than 23 minutes, full code DISPOSITION: Telemetry Case discussed with Dr. Moulton Plan discussed with: Patient, Other My Orders My Orders Orders - ANGELIC BOND Procedure Category Date Status Time Cardiac DIET 06/18/24 Transmitted Diet-2gna,Lofat,Lochol Lunch * Cardiology Consult CONS 06/18/24 Transmitted 11:50 May Shower BOB 06/18/24 In Process 16:44 ANGELIC BOND Jun 18, 2024 17:21
[2024-06-18] MEDS: AMIODARONE HCL 200 MG TAB PO SCH (21:25)
[2024-06-18] MEDS: CEFEPIME 1GM/ 50ML 50 ML IV SCH (21:26)
[2024-06-18] MEDS: APIXABAN 5 MG TAB PO SCH (21:32)
[2024-06-18] MEDS ORDERED: AMIODARONE BOLUS KIT 100 ML IV ONE (22:00)
[2024-06-18] MEDS ORDERED: AMIODARONE 360mg/200mL PREMIX 200 ML IV SCH (23:00)
[2024-06-18] MEDS: FUROSEMIDE 20 MG/2 ML VIAL IV ONE (23:10)
[2024-06-18] MEDS: POTASSIUM CHL 20 Meq TABLET PO ONE (23:11)
[2024-06-18] MEDS: MAGNESIUM SULFATE 1GM/100ML 100 ML IV ONE (23:15)
[2024-06-19] VITALS (12 sets, daily range): BP systolic 82–104; BP diastolic 41–67; PULSE 71–124; RESP 15–18; TEMP 97.6–98.2; O2SAT 93–97
[2024-06-19 06:31] LABS: Basophils # (auto) 0 10 ^3/uL (0-0.2); Basophils % (auto) 0.4 % (0.0-2.0); Eosinophils # (auto) 0.1 10 ^3/uL (0-0.8); Eosinophils % (auto) 1.8 % (0.0-7.0); Hematocrit 33.9 % (36.0-46.0); Hemoglobin 11.5 g/dL (12.2-16.2); Lymphocytes # (auto) 2.2 10 ^3/uL (0.4-5.4); Lymphocytes % (auto) 33.2 % (10.0-50.0); Mean Corpuscular Hemoglobin 30.4 pg (28.0-32.0); Mean Corpuscular Hgb Conc. 33.8 g/dL (32.0-36.0); Mean Corpuscular Volume 89.9 fL (80.0-100.0); Monocytes # (auto) 0.7 10 ^3/uL (0-1.3); Monocytes % (auto) 10.8 % (0.0-12.0); Neutrophils # (auto) 3.6 10 ^3/uL (1.6-8.6); Neutrophils % (auto) 53.8 % (37.0-80.0); Platelet Count (auto) 287 10^3/uL (140-450); Red Blood Cells 3.77 10^6/uL (4.0-5.20); Red Cell Distribution Width 13.7 % (11.8-14.3); White Blood Cell 6.8 10^3/uL (4.4-10.8)
[2024-06-19 06:53] LABS: Alanine Aminotransferase 37 U/L (7-40); Anion Gap 8 (5-15); Aspartate Aminotransferase 28 U/L (13-40); Carbon Dioxide 27 mmol/L (20-31); Potassium 3.5 mmol/L (3.5-5.1); Sodium 145 mmol/L (136-145)
[2024-06-19 06:54] LABS: Blood Urea Nitrogen 12 mg/dL (9-23)
[2024-06-19 06:55] LABS: Albumin 3.3 g/dL (3.2-4.8); Alkaline Phosphatase 142 U/L (46-116); Calcium 8.7 mg/dL (8.7-10.4); Chloride 110 mmol/L (98-107); Glucose 145 mg/dL (74-106)
[2024-06-19 06:56] LABS: Bilirubin, Total 0.5 mg/dL (0.2-1.0); Total Protein 5.5 g/dL (5.7-8.2)
[2024-06-19] MEDS: AMIODARONE HCL 200 MG TAB PO SCH (09:08)
--- NOTE | 2024-06-19 10:18 | ECG ---
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
[2024-06-19] MEDS ORDERED: AMIO200T33 PO (15:34)
[2024-06-19] MEDS ORDERED: AMIO400T7 PO (15:34)
[2024-06-19] MEDS ORDERED: APIX5TAB PO (15:34)
[2024-06-19] MEDS ORDERED: DOXY100C79 PO (15:34)
--- NOTE | 2024-06-19 15:51 | DVHDSRES ---
Discharge Summary Date of Admission Resident Creating Document: EM CONNELL RESIDENT Jun 15, 2024 at 22:18 Date of Discharge: Jun 19, 2024 Admitting Diagnosis Dizziness Wounds: No wounds present at this time. Labs/Diagnostic Data: Laboratory Results Test 06/19/24 05:55 06/18/24 22:13 06/17/24 03:35 06/16/24 11:41 White Blood Count 6.8 10^3/uL (4.4-10.8) Red Blood Count 3.77 10^6/uL (4.0-5.20) Hemoglobin 11.5 g/dL (12.2-16.2) Hematocrit 33.9 % (36.0-46.0) Mean Corpuscular Volume 89.9 fL (80.0-100.0) Mean Corpuscular Hemoglobin 30.4 pg (28.0-32.0) Mean Corpuscular Hemoglobin Concent 33.8 g/dL (32.0-36.0) Red Cell Distribution Width 13.7 % (11.8-14.3) Platelet Count 287 10^3/uL (140-450) Mean Platelet Volume 8.8 fL (6.9-10.8) Neutrophils (%) (Auto) 53.8 % (37.0-80.0) Lymphocytes (%) (Auto) 33.2 % (10.0-50.0) Monocytes (%) (Auto) 10.8 % (0.0-12.0) Eosinophils (%) (Auto) 1.8 % (0.0-7.0) Basophils (%) (Auto) 0.4 % (0.0-2.0) Neutrophils # (Auto) 3.6 10 ^3/uL (1.6-8.6) Lymphocytes # (Auto) 2.2 10 ^3/uL (0.4-5.4) Monocytes # (Auto) 0.7 10 ^3/uL (0-1.3) Eosinophils # (Auto) 0.1 10 ^3/uL (0-0.8) Basophils # (Auto) 0 10 ^3/uL (0-0.2) Nucleated Red Blood Cells 0.0 % Sodium Level 145 mmol/L (136-145) Potassium Level 3.5 mmol/L (3.5-5.1) Chloride Level 110 mmol/L (98-107) Carbon Dioxide Level 27 mmol/L (20-31) Anion Gap 8 (5-15) Blood Urea Nitrogen 12 mg/dL (9-23) Creatinine 0.92 mg/dL (0.550-1.02) Glomerular Filtration Rate Calc 71 mL/min (>90) BUN/Creatinine Ratio 13.0 (10.0-20.0) Serum Glucose 145 mg/dL (74-106) Hemoglobin A1c 5.7 % A1C (<5.7) Calcium Level 8.7 mg/dL (8.7-10.4) Total Bilirubin 0.5 mg/dL (0.2-1.0) Aspartate Amino Transferase (AST) 28 U/L (13-40) Alanine Aminotransferase (ALT) 37 U/L (7-40) Alkaline Phosphatase 142 U/L (46-116) Total Protein 5.5 g/dL (5.7-8.2) Albumin 3.3 g/dL (3.2-4.8) Magnesium Level 1.7 mg/dL (1.6-2.6) Stool for White Cells None seen B-Type Natriuretic Peptide 254.82 pg/mL (0-100) Test 06/16/24 03:05 06/16/24 00:16 06/15/24 23:35 06/15/24 23:33 Influenza Type A Antigen Negative (Negative) Influenza Type B Antigen Negative (Negative) SARS-CoV-2 Antigen (Rapid) Negative (NEGATIVE) Lactic Acid Level 1.3 mmol/L (0.4-2.0) Direct Bilirubin 0.4 mg/dL (<0.3) Vitamin B12 Level 1402 pg/mL (211-911) Vitamin D 25-Hydroxy 46.3 ng/mL (30.0-100) Folic Acid 17.28 ng/mL (>5.38) Thyroid Stimulating Hormone (TSH) 0.61 uIU/mL (0.55-4.78) Rapid Plasma Reagin Non reactive (Non Reactive) Ammonia < 10 umol/L (11-32) Test 06/15/24 14:45 06/15/24 14:37 Troponin I High Sensitivity 4 ng/L (</=34) Urine Color Yellow (Yellow) Urine Clarity Turbid (Clear) Urine pH 5.5 (5.0-9.0) Urine Specific [place] 1.026 (1.001-1.035) Urine Protein 1+ (Negative) Urine Ketones 1+ (Negative) Urine Blood Negative /uL (Negative) Urine Nitrite Negative (Negative) Urine Bilirubin Negative (Negative) Urine Urobilinogen Normal mg/dL (Negative) Urine Leukocyte Esterase 1+ /uL (Negative) Urine RBC 3 /hpf (0 - 4) Urine Microscopic WBC 11 /HPF (0-5) Urine Squamous Epithelial Cells Few /hpf (<5) Urine Bacteria Few /hpf (None Seen) Urine Mucus Few (None Seen) Urine Glucose Trace mg/dL (Normal) Urine Opiates Screen Neg (NEGATIVE) Urine Fentanyl Screen Neg (NEGATIVE) Urine Barbiturates Screen Neg (NEGATIVE) Urine Phencyclidine Screen Neg (NEGATIVE) Urine Amphetamines Screen Neg (NEGATIVE) Urine Benzodiazepines Screen Neg (NEGATIVE) Urine Cocaine Screen Neg (NEGATIVE) Urine Cannabinoids Screen Neg (NEGATIVE) Other Laboratory Tests 06/19/24 05:55 Brief Hx & Hospital Course: This is a 58-year-old female with past medical history of dyslipidemia, GERD, The patient has history of scoliosis (status post surgery) and lumbar disc herniation which has the planned surgery 2 months later. The patient presented to the hospital due to dizziness since 10 days before coming to the ED. On admission, the patient was feeling like the room was spinning around her, which worsen with head movements. Patient also reports fever, cough, mild shortness of breaths, nausea, vomiting, diarrhea, and abdominal pain. Patient denies chest pain, dysuria, any recent sick contact or travel history. That time, the patient was started on IV doxycycline and cefepime for possible bacterial pneumonia. The patient also got IV fluids due to slight hypotension and Zora maneuvers for possible benign paroxysmal positional vertigo. During hospitalization stayed, the patient developed atrial fibrillation for which Cardiology was involved on board and recommended amiodarone drip which was further switch to amiodarone 400 mg p.o. q.12. The patient is currently on sinus rhythm at this time and was anticoagulated with apixaban 5 mg b.i.d.. Patient was seen and examined at bedside today, patient states that dizziness is gone, no headache, chest pain, shortness of breath or any other distress. The patient will be discharged home on doxycycline 100 mg b.i.d. for three additional days to complete treatment. Apixaban 5 mg b.i.d., amiodarone 400 mg b.i.d. for seven days and then continue amiodarone 200 mg b.i.d. patient is to follow up closely with Cardiology as an outpatient and with her PCP in one week. Patient agrees and understands the plan. Discharge plan: Amiodarone 400 mg b.i.d. for the 1st week, then continue amiodarone 200 mg b.i.d. Doxycycline 100 mg b.i.d. for three additional days. F/u with her PCP in 1 week F/U with cardiology as outpatient in 2 weeks Consults/Reason for consult Cardiology for Afib Operations or Procedures CT ABDOMEN AND PELVIS WITHOUT CONTRAST CLINICAL HISTORY: enteritis TECHNIQUE: Multiple contiguous axial images of the abdomen and pelvis without intravenous contrast. The images were reformatted degenerate coronal and sagittal reconstructions. All CT scans at this medical facility are performed using dose modulation techniques as appropriate to a performed exam including the following:Automated exposure control was utilized; adjustment of the MA and/or KV according to patient size; and use of iterative reconstruction technique. Radiation Dose Information: CT Dose: CTDI volume is 18 mGy. Dose-length product is 925 mGy*cm Comparison: None FINDINGS: Evaluation of the abdomen and pelvis is limited without intravenous contrast. The gallbladder is surgically absent. There is a dilated common bile duct which is likely postsurgical. There are left renal cysts measuring up to 3.2 cm. There is no evidence of nephrolithiasis or hydronephrosis. The liver, pancreas, adrenal glands, and spleen appear within normal limits. There is no gross evidence of abdominal lymphadenopathy. There is no free fluid or free air. The stomach grossly appears unremarkable. The small and large bowel loops demonstrate normal caliber. There are diverticula in the sigmoid colon without evidence of acute diverticulitis. There is a normal-appearing appendix seen in the right lower quadrant abdomen. The abdominal aorta and IVC appear within normal limits. The bladder appears unremarkable for the degree of distention. The uterus is surgically absent.. There is no gross evidence of a pelvic mass. There is no free fluid collection. There is a band of scarring versus atelectasis in the right lung base. There is levoconvex curvature of the lumbar spine. There is partial visualization of the left-sided posterior fusion vinny in the visualized thoracic and upper lumbar spine. IMPRESSION: 1. There is no acute process in the abdomen and pelvis. 2. Sigmoid diverticulosis without evidence of acute diverticulitis. 3. Postsurgical changes related to cholecystectomy with dilated common bile duct. 4. Left renal cysts. EXAM: XY CHEST XRAY 1 VIEW CLINICAL HISTORY: Pneumonia TECHNIQUE: Single AP view of the chest WID: COMPARISON: None FINDINGS: Lines and tubes: Single vinny projects over the thoracic spine. Chest: The heart size and pulmonary vasculature is within normal limits. No pleural effusion, pneumothorax, or consolidation. Linear scarring in the right lung base. The osseous structures are grossly intact. Mild right convexity scoliosis of the thoracic spine. IMPRESSION: No acute cardiopulmonary abnormality. CT BRAIN WITHOUT CONTRAST HISTORY: Dizziness TECHNIQUE: Axial scans were obtained from the skull base through the vertex without contrast. Sagittal and coronal reformats were generated. One or more of the following radiation dose reduction techniques were used for this examination: automated exposure control, adjustment of the mA and/or kV according to patient size, use of iterative reconstruction technique. COMPARISON: None FINDINGS: Streak artifact limits evaluation, predominantly of the skull base and right posterior fossa. As visualized, no definite acute intracranial hemorrhage or evidence of large vessel territorial infarction is identified at this time. No midline shift. The basilar cisterns are patent. The visualized paranasal sinuses and mastoid air cells are clear. No grossly displaced calvarial abnormalities identified. IMPRESSION: No definite acute intracranial findings as visualized. If symptoms persist, MRI may be obtained to further evaluate. Condition at Discharge: Good Final Diagnosis/Problems List Dizziness possibly due to BPPV/ Hypotension Newly diagnosed atrial fibrillation with controlled rate Community acquired pneumonia likely due to Gram-positive Gram-negative bacteria Ruled out CHF Acute hypoxic respiratory failure secondary to above Possible acute cystitis History of scoliosis, status post surgery/placement of bar Degenerative disc disease/disc herniation, patient has appointment for a planned surgery Dyslipidemia GERD Left renal cysts Discharge Disposition: Home Discharge Instruct/Medications Diet: Regular Activity: No Restrictions, As Tolerated Follow Up/Referral: F/u with her PCP in 1 week F/U with cardiology as outpatient in 2 weeks Medications: Amiodarone 400 mg b.i.d. for the 1st week, then continue amiodarone 200 mg b.i.d. Doxycycline 100 mg b.i.d. for three additional days. Discharge Statement: "Patient was advised to return to the ER or call 911 if any headaches, dizziness, shortness of breath, chest pain, abdominal pain, bleeding, fevers, or worsening of medical condition. Patient was counseled about treatment plan, medications, possible side effects, patientverbalized understanding. All questions were answered to the best of my ability. This discharge took greater then 30 minutes in planning, reviewing documentation, counseling the patient, and discussing with other team members." ASSESSMENT ASSESSMENT Assessment Dizziness possibly due to BPPV/ Hypotension Newly diagnosed atrial fibrillation with controlled rate Community acquired pneumonia likely due to Gram-positive Gram-negative bacteria Ruled out CHF Acute hypoxic respiratory failure secondary to above Possible acute cystitis History of scoliosis, status post surgery/placement of bar Degenerative disc disease/disc herniation, patient has appointment for a planned surgery Dyslipidemia GERD Left renal cysts EM CONNELL RESIDENT Jun 19, 2024 15:51
== END 2024-06-19 18:28 | disposition home or self-care (01) | DRG 137 ==
LOC: EDBD 12:49 → ER 12:49 → OVERFLOW 22:18 → WEST WING 06-16 02:55 → TELE-WESTW 06-18 05:54
PROVIDERS: ADMIT Student in an Organized Health Care Education/Training Program; ATTEND Student in an Organized Health Care Education/Training Program
DX: J15.69 Pneumonia due to other Gram-negative bacteria (principal); J96.01 Acute respiratory failure with hypoxia; H81.10 Benign paroxysmal vertigo, unspecified ear; J15.9 Unspecified bacterial pneumonia; I48.0 Paroxysmal atrial fibrillation; N30.00 Acute cystitis without hematuria; K21.9 Gastro-esophageal reflux disease without esophagitis; Z20.822 Contact with and (suspected) exposure to COVID-19; K57.30 Diverticulosis of large intestine without perforation or abscess without bleeding; N28.1 Cyst of kidney, acquired; E78.5 Hyperlipidemia, unspecified; M41.9 Scoliosis, unspecified; E66.9 Obesity, unspecified; R74.01 Elevation of levels of liver transaminase levels; Z90.710 Acquired absence of both cervix and uterus; Z90.49 Acquired absence of other specified parts of digestive tract; Z82.5 Family history of asthma and other chronic lower respiratory diseases; Z68.32 Body mass index [BMI] 32.0-32.9, adult
CPT/HCPCS: 36415; 70450; 71045; 74176; 80048; 80053; 80076; 80307; 81001; 82140; 82306; 82607; 82746; 83036; 83605; 83735; 83880; 84443; 84484; 85025; 85048; 86592; 87045; 87081; 87086; 87426; 87427; 87804; 93005; 93306; 94640; 96365; 96375; G0378; J2470